=== PATIENT | female | born 1960 | race Caucasian/White ===

== ENCOUNTER 2016-09-21 11:27 | Outpatient (CLI) | payer OTHER ==
[2016-09-21 12:44] LABS: T4 6.3 ug/dL (4.87-11.72); Thyroid Stimulating Hormone 1.6828 uIU/mL (0.35-4.94); Vitamin D, 25 Hydroxy 57.7 ng/mL (> 30.0)
== END 2016-09-21 11:28 | disposition home or self-care (01) ==
LOC: MADLAB 11:27
PROVIDERS: ATTEND Otolaryngology
DX: E03.9 Hypothyroidism, unspecified (principal); E53.8 Deficiency of other specified B group vitamins; E55.9 Vitamin D deficiency, unspecified
CPT/HCPCS: 36415; 82306; 82607; 84436; 84443; 84481

== ENCOUNTER 2016-12-20 19:44 | Outpatient (CLI) | payer OTHER ==
[2016-12-20 21:40] LABS: T4 6.2 ug/dL (4.87-11.72); Thyroid Stimulating Hormone 4.4746 uIU/mL (0.35-4.94)
== END 2016-12-20 19:45 | disposition home or self-care (01) ==
LOC: MADLAB 19:44
PROVIDERS: ATTEND Otolaryngology
DX: E03.9 Hypothyroidism, unspecified (principal); E53.8 Deficiency of other specified B group vitamins; E55.9 Vitamin D deficiency, unspecified
CPT/HCPCS: 36415; 82306; 82607; 84436; 84443; 84481

== ENCOUNTER 2017-03-12 10:15 | Outpatient (CLI) | payer OTHER ==
[2017-03-12 15:28] LABS: Thyroid Stimulating Hormone 2.2234 uIU/mL (0.35-4.94); Vitamin D, 25 Hydroxy 87.3 ng/ml (> 30.0)
[2017-03-13 17:32] LABS: T4 6.4 ug/dL (4.87-11.72)
== END 2017-03-12 10:16 | disposition home or self-care (01) ==
LOC: MADLAB 10:15
PROVIDERS: ATTEND Otolaryngology
DX: E03.9 Hypothyroidism, unspecified (principal); E53.8 Deficiency of other specified B group vitamins; E55.9 Vitamin D deficiency, unspecified
CPT/HCPCS: 36415; 82306; 82607; 84436; 84443; 84481

== ENCOUNTER 2017-09-10 09:13 | Outpatient (CLI) | payer OTHER ==
[2017-09-10 22:39] LABS: Thyroid Stimulating Hormone 2.2654 uIU/mL (0.35-4.94)
== END 2017-09-10 09:14 | disposition home or self-care (01) ==
LOC: MADLAB 09:13
PROVIDERS: ATTEND Otolaryngology
DX: E03.9 Hypothyroidism, unspecified (principal); E53.8 Deficiency of other specified B group vitamins; E55.9 Vitamin D deficiency, unspecified
CPT/HCPCS: 36415; 82306; 82607; 84436; 84443; 84481

== ENCOUNTER 2025-06-28 09:54 | Outpatient (CLI) | payer OTHER ==
[2025-06-28 10:34] LABS: #Basophils 0.1 thou/uL (0.0-0.2); #Eosinophils 0.1 thou/uL (0.0-0.7); #Lymphocytes 1.5 thou/uL (1.20-3.40); #Monocytes 0.4 thou/uL (0.11-0.59); #Neutrophils 3.5 thou/uL (1.40-6.50); %Basophils 2.1 % (0.0-1.0); %Eosinophils 2.0 % (0.0-10.0); %Lymphocytes 26.3 % (21.0-51.0); %Monocytes 6.4 % (0.0-10.0); %Neutrophils 63.3 % (42.0-75.0); Hematocrit 45.3 % (36.0-47.0); Hemoglobin 14.0 g/dL (12.0-16.0); Mean Corpuscular Hemoglobin 30.2 pg (27.0-31.0); Mean Corpuscular Volume 97.2 fl (78.0-98.0); Platelet Count 203 10x3/uL (130-400); Red Blood Cell (RBC) Count 4.66 mill/uL (4.20-5.40); White Blood Cell (WBC) Count 5.6 10x3/uL (4.8-10.8)
[2025-06-28 10:43] LABS: ALT (SGPT) 23 U/L (Less than 34); AST (SGOT) 29 U/L (11-34); Albumin 4.1 g/dL (3.1-4.5); Alkaline Phosphatase 70 U/L (40-110); Anion Gap 15 mmol/L (10-20); BUN (Urea Nitrogen) 16 mg/dL (9.8-20.1); Bilirubin, Total 0.6 mg/dL (0.3-1.2); Calc. Creatinine Clearance 0 mL/min (70-130); Calcium 9.1 mg/dL (7.8-10.44); Carbon Dioxide 26 mmol/L (23-31); Cardiac Risk 3.1 (Less than 4.5); Chloride 105 mmol/L (98-107); Cholesterol 206 mg/dl (< 200 Desired); Globulin 2.6 g/dL (2.4-3.5); Glucose 103 mg/dL (80-115); HDL Cholesterol 66 mg/dL (>60 Neg Risk); LDL Cholesterol, Calculated 128 mg/dL; Sodium 142 mmol/L (136-145); Triglycerides 60 mg/dL (Less than 150)
[2025-06-28 12:58] LABS: Potassium 3.6 mmol/L (3.5-5.1)
[2025-06-29 13:00] LABS: Free T4 (Free Thyroxine) 0.95 ng/dL (0.70-1.48); Vitamin B12 1355.0 pg/mL (211-911)
[2025-06-29 13:43] LABS: Vitamin D, 25 Hydroxy 102.0 ng/ml (> 30.0)
== END 2025-06-28 09:55 | disposition home or self-care (01) ==
LOC: MADLAB 09:54
PROVIDERS: ATTEND Family Medicine
DX: Z13.6 Encounter for screening for cardiovascular disorders (principal); E03.9 Hypothyroidism, unspecified; E55.9 Vitamin D deficiency, unspecified; R53.83 Other fatigue; R73.01 Impaired fasting glucose; Z79.899 Other long term (current) drug therapy
CPT/HCPCS: 36415; 80053; 80061; 82306; 82607; 83036; 84439; 84443; 85025